=== PATIENT | male | born 1990 | race Caucasian/White ===

== ENCOUNTER 2016-12-05 02:31 | Emergency (ER) | payer SELFPAY ==
[2016-12-05] MEDS ORDERED: ACETAMINOPHEN 325 MG TABLET PO ONE (04:58)
[2016-12-05] MEDS ORDERED: DEXAMETHASONE SOD PHOS INJ 10 MG/1 ML VIAL IM ONE (05:33)
[2016-12-05] MEDS ORDERED: AMOXICILLIN TRIHYDRATE 500 MG CAPSULE PO ONE (05:33)
--- NOTE | 2016-12-05 05:44 | ER Document Report ---
HPI - HPI Patient complains to provider of: right ear pain, sinus congestion, cough Pain Level: 5 Context: Patient is a 26 year old male that comes to the ED for chief complaint of several days of sinus congestion, he has developed green nasal discharge, he reports intermittent cough, and he states now his right ear is very painful with difficulty hearing from the ear. He denies fever, shortness of breath, headache. He smokes. He denies any prescribed daily meds. - DERM Skin Color: Normal Past Medical History - General Information source: Patient - Social History Smoking Status: Current Every Day Smoker Smoking Education Provided: Yes - <3 min Frequency of alcohol use: Occasional Drug Abuse: None Lives with: Alone Family History: Reviewed & Not Pertinent Patient has suicidal ideation: No Patient has homicidal ideation: No - Medical History Medical History: Negative Renal/ Medical History: Denies: Hx Peritoneal Dialysis Surgical Hx: Negative - Immunizations Hx Diphtheria, Pertussis, Tetanus Vaccination: Yes Vertical Provider Document - CONSTITUTIONAL General Appearance: WD/WN, No Apparent Distress - sleeping, easily aroused - INFECTION CONTROL TRAVEL OUTSIDE OF THE [place] IN LAST 30 DAYS: No - HEENT HEENT: negative: Normal ENT Exam - Some sinus congestion, no sinus tenderness noted. Right-sided otitis media with purulent effusion, erythematous tympanic membrane, loss of landmarks. Left ear exam is normal. Normal mastoid exam. Minimal erythema of the pharyngeal area, otherwise unremarkable oral exam. No significant adenopathy noted. - NECK Neck: Normal Inspection - RESPIRATORY Respiratory: Breath Sounds Normal, No Respiratory Distress O2 Sat by Pulse Oximetry: 99 - CARDIOVASCULAR Cardiovascular: Regular Rate, Regular Rhythm - GI/ABDOMEN Gastrointestinal: Abdomen Soft, Abdomen Non-Tender - MUSCULOSKELETAL/EXTREMETIES Musculoskeletal/Extremeties: MAEW, FROM, Non-Tender - NEURO Level of Consciousness: Awake, Alert, Appropriate Course - Vital Signs Vital signs: Temp Pulse Resp BP Pulse Ox 98.3 F 78 18 150/90 H 99 12/05/16 02:47 12/05/16 02:47 12/05/16 02:47 12/05/16 02:47 12/05/16 02:47 Discharge - Discharge Clinical Impression: Sinus congestion, Cough Otitis media Qualifiers: Otitis media type: suppurative Chronicity: acute Laterality: right Recurrence: not specified as recurrent Spontaneous tympanic membrane rupture: without spontaneous rupture Qualified Code(s): H66.001 - Acute suppurative otitis media without spontaneous rupture of ear drum, right ear Condition: Stable Disposition: HOME, SELF-CARE Additional Instructions: Your examination shows a right-sided ear infection, also likely a sinus infection. Take the antibiotic as prescribed to completion. I also recommend nasal spray such as Flonase or Nasacort, decongestant such as Sudafed, and also a sinus rinse such as a Suze pot. Take ibuprofen for pain. Stop smoking. Follow-up with primary care. Return to emergency department for any concerning symptoms including rapid or labored breathing. Prescriptions: Amoxicillin Trihydrate [Amoxil 875 mg Tablet] 1 tab PO BID #20 tablet Forms: Smoking Cessation Education
[2016-12-05 06:33] VITALS: BP 132/72
== END 2016-12-05 06:15 | disposition home or self-care (01) ==
LOC: ER 02:31
DX: H66.001 Acute suppurative otitis media without spontaneous rupture of ear drum, right ear (principal); R09.81 Nasal congestion; R05 Cough; H92.01 Otalgia, right ear; F17.210 Nicotine dependence, cigarettes, uncomplicated
CPT/HCPCS: 99282; J1100